=== PATIENT | male | born 1980 | race Caucasian/White ===

== ENCOUNTER 2017-02-10 21:28 | Emergency (ER) | payer BC ==
--- NOTE | 2017-02-10 22:13 | XR ---
EXAMINATION TYPE: XR foot complete RT DATE OF EXAM: 02/10/2017 CLINICAL HISTORY: Pain after tripping injury. TECHNIQUE: Frontal, lateral, and oblique images of the right foot are obtained. COMPARISON: None FINDINGS: There is no acute fracture/dislocation evident in the right foot. The joint spaces in the right foot appear within normal limits. The overlying soft tissue appears unremarkable. IMPRESSION: There is no acute fracture or dislocation in the right foot.
--- NOTE | 2017-02-10 22:14 | XR ---
EXAMINATION TYPE: XR ankle complete RT DATE OF EXAM: 02/10/2017 CLINICAL HISTORY: Ankle pain after tripping injury. TECHNIQUE: Frontal, lateral and oblique images of the right ankle are obtained. COMPARISON: None. FINDINGS: There is no acute fracture/dislocation evident in the right ankle. The ankle mortise appe ars within normal limits. The overlying soft tissue appears unremarkable. IMPRESSION: There is no acute fracture or dislocation in the right ankle.
--- NOTE | 2017-02-10 22:17 | ED ---
Lower Extremity Injury HPI - General Chief Complaint: Extremity Injury, Lower Stated Complaint: R foot injury Time Seen by Provider: 02/10/17 21:41 Source: patient Mode of arrival: ambulatory Limitations: no limitations - History of Present Illness Initial Comments: 36-year-old patient presented to emergency department today for evaluation of right foot pain. Patient states that approximately 2 hours ago he was coming down the steps, states his dog and his weight and he stumbled on the last couple of steps when he tried to avoid stepping on it. He states that since then he has been having some pressure and pain to the dorsal aspect of his foot. He states that he has full range of motion without any difficulty however when he wears a shoe or walks for any length of time his foot becomes painful. He denies any numbness or tingling to his foot. Denies any color change. Denies any previous injuries to the foot. Denies any other injuries from the fall. Denies hitting his head or losing consciousness. Patient denies any headache, neck pain, back pain, chest pain, shortness of breath, dizziness, weakness, abdominal pain, nausea, vomiting, or difficulties with bowel movements or urination. - Related Data Home Medications Medication Instructions Recorded Confirmed Losartan Potassium 100 mg PO DAILY 05/03/14 02/10/17 Allergies Allergy/AdvReac Type Severity Reaction Status Date / Time No Known Allergies Allergy Verified 02/10/17 21:35 Review of Systems ROS Statement: Those systems with pertinent positive or pertinent negative responses have been documented in the HPI. ROS Other: All systems not noted in ROS Statement are negative. Past Medical History Past Medical History: Hypertension History of Any Multi-Drug Resistant Organisms: None Reported Past Surgical History: Tonsillectomy Past Psychological History: No Psychological Hx Reported Smoking Status: Current every day smoker Past Alcohol Use History: Daily Past Drug Use History: None Reported General Exam Limitations: no limitations General appearance: alert, in no apparent distress Head exam: Present: atraumatic, normocephalic, normal inspection Eye exam: Present: normal appearance, PERRL, EOMI. Absent: scleral icterus, conjunctival injection, periorbital swelling Neck exam: Present: normal inspection, full ROM, other (Nontender, no step-off, no deformity to firm midline palpation of the posterior cervical spine. Full range of motion without pain or limitation.). Absent: tenderness, meningismus, lymphadenopathy Respiratory exam: Present: normal lung sounds bilaterally. Absent: respiratory distress, wheezes, rales, rhonchi, stridor Cardiovascular Exam: Present: regular rate, normal rhythm, normal heart sounds. Absent: systolic murmur, diastolic murmur, rubs, gallop, clicks Extremities exam: Present: normal inspection, full ROM, tenderness, normal capillary refill (Over the dorsal aspect of the foot), other (No swelling, no erythema, no ecchymosis noted. Skin is pink, warm, and dry. Cap refill less than 3 seconds. Full range of motion without pain or limitation.). Absent: joint swelling Back exam: Present: normal inspection. Absent: tenderness, vertebral tenderness Neurological exam: Present: alert, oriented X3, CN II-XII intact Psychiatric exam: Present: normal affect, normal mood Skin exam: Present: warm, dry, intact, normal color. Absent: rash Course Vital Signs 02/10/17 21:35 Temperature 98 F Pulse Rate 83 Respiratory 20 Rate Blood Pressure 125/73 O2 Sat by Pulse 98 Oximetry Medical Decision Making - Medical Decision Making 36-year-old male patient presented for evaluation of right foot pain after he landed wrong on it coming on the stairs earlier today. X-ray of the foot shows no acute fracture or dislocation. X-ray of the ankle shows no acute fracture or dislocation. Patient did has some tenderness over the dorsal aspect of the foot. Did discuss the possibility of an occult Lisfranc fracture. Did instruct him to have a repeat x-ray performed in 7-10 days should he have any problems or continued pain. He is instructed to rest, ice, and elevate the foot. Instructed to take Advil for pain control. He is instructed to return here immediately for any new, worsening, or concerning symptoms. Patient verbalizes understanding and agrees with this plan. - Radiology Data Radiology results: report reviewed, image reviewed Frontal, lateral, and oblique images of the right foot are obtained. There is no acute fracture or dislocation evident. The joint spaces in the right foot appear within normal limits. The overlying soft tissue appears unremarkable. Impression by Dr. Ewing shows no acute fracture or dislocation the right foot. Frontal, lateral, and oblique images of the right ankle are obtained. There is no acute fracture or dislocation evident in the right ankle. Ankle mortise appears within normal limits. The overlying soft tissue appears unremarkable. Impression by Dr. Gildardo quiñonez no acute fracture or dislocation of the right ankle. Disposition Clinical Impression: Right foot sprain Disposition: HOME SELF-CARE Condition: Good Instructions: Foot Sprain (ED) Additional Instructions: Rest, ice, elevate the right foot. Take ibuprofen for pain control. Follow up for repeat x-ray in 7-10 days if pain symptoms persist. Return here immediately for any new, worsening, or concerning symptoms. Referrals: Hesham Navarro MD [Primary Care Provider] - 1-2 days Time of Disposition: 22:17
[2017-02-10 22:27] VITALS: BP 122/67; PULSE 76; RESP 18; TEMP 97
== END 2017-02-10 22:27 | disposition home or self-care (01) ==
LOC: EC 21:28
DX: S93.601A Unspecified sprain of right foot, initial encounter (principal); I10 Essential (primary) hypertension; F17.200 Nicotine dependence, unspecified, uncomplicated; Z79.899 Other long term (current) drug therapy; W18.40XA Slipping, tripping and stumbling without falling, unspecified, initial encounter
CPT/HCPCS: 99283

== ENCOUNTER 2023-09-19 18:19 | Emergency (ER) | payer BC ==
--- NOTE | 2023-09-19 19:34 | ED ---
Fall HPI - General Chief Complaint: Fall Stated Complaint: Fall Time Seen by Provider: 09/19/23 19:05 Source: patient, RN notes reviewed Mode of arrival: wheelchair - History of Present Illness Initial Comments: 43-year-old male presenting with left hip pain status post fall 2 hours ago. States he was putting his boat in the water when he tripped and fell, landing on his left hip directly onto the concrete. Has been unable to weight-bear since the injury. Denies hitting head, loss of consciousness. Denies blood thinners. Denies numbness or tingling. He believes he hit his left shoulder as well but is not having very much pain in the shoulder anymore and is not as concerned about the shoulder as he is the hip. - Related Data Home Medications Medication Instructions Recorded Confirmed Losartan Potassium 100 mg PO DAILY 05/03/14 02/10/17 Allergies Allergy/AdvReac Type Severity Reaction Status Date / Time No Known Allergies Allergy Verified 09/19/23 19:01 Review of Systems ROS Statement: Those systems with pertinent positive or pertinent negative responses have been documented in the HPI. ROS Other: All systems not noted in ROS Statement are negative. Past Medical History Past Medical History: Hypertension History of Any Multi-Drug Resistant Organisms: None Reported Past Surgical History: Back Surgery, Tonsillectomy Past Psychological History: No Psychological Hx Reported Smoking Status: Current every day smoker Past Alcohol Use History: Daily Past Drug Use History: Marijuana General Exam Limitations: no limitations General appearance: alert, in no apparent distress Respiratory exam: Present: normal lung sounds bilaterally. Absent: respiratory distress, wheezes, rales, rhonchi, stridor Cardiovascular Exam: Present: regular rate, normal rhythm, normal heart sounds. Absent: systolic murmur, diastolic murmur, rubs, gallop, clicks Left Hip exam: Present: tenderness. Absent: normal inspection (6 cm linear purple/red contusion present on anterior aspect of left hip. Diffuse tenderness of anterior portion of left hip. Limited range of motion of hip. Full sensation and dorsalis pedis pulses of bilateral lower extremities. No saddle anesthesia), full ROM, swelling, abrasion, laceration, deformity Upper Leg exam: Present: normal inspection Knee exam: Present: normal inspection, full ROM. Absent: tenderness Lower Leg exam: Present: normal inspection, full ROM. Absent: tenderness, swell ing Course Vital Signs 09/19/23 19:01 Temperature 98 F Pulse Rate 92 Respiratory 12 Rate Blood Pressure 112/73 O2 Sat by Pulse 98 Oximetry Medical Decision Making - Medical Decision Making Was pt. sent in by a medical professional or institution (, PRERNA, MICROPHONE OPERATOR, urgent care, hospital, or fpc...) When possible be specific @ -No Did you speak to anyone other than the patient for history (EMS, parent, family, police, friend...)? What history was obtained from this source @ -No Did you review nursing and triage notes (agree or disagree)? Why? @ -I reviewed and agree with nursing and triage notes Were old charts reviewed (outside hosp., previous admission, EMS record, old EKG, old radiological studies, urgent care reports/EKG's, fpc records)? Report findings @ -No old charts were reviewed Differential Diagnosis (chest pain, altered mental status, abdominal pain women, abdominal pain men, vaginal bleeding, weakness, fever, dyspnea, syncope, headache, dizziness, GI bleed, back pain, seizure, CVA, palpatations, mental health, musculoskeletal)? @ -Differential Musculoskeletal Muscular strain, contusion, ligament sprain, fracture, arthritis, septic arthritis, bursitis, cellulitis, muscle spasm, nerve compression, DVT, arterial occlusion, herpes zoster, electrolyte abnormality, tumor.... This is not meant to be in all inclusive list EKG interpreted by me (3pts min.). @ -None X-rays interpreted by me (1pt min.). @ -X-ray of left hip reveals no acute fracture or dislocation CT interpreted by me (1pt min.). @ -None done U/S interpreted by me (1pt. min.). @ -None done What testing was considered but not performed or refused? (CT, X-rays, U/S, labs)? Why? @ -None What meds were considered but not given or refused? Why? @ -None Did you discuss the management of the patient with other professionals (professionals i.e. [facility]ER[facility] Marc, MICROPHONE OPERATOR, lab, RT, psych nurse, director social welfare, vacuum filter operator, teacher, crime prevention police officer, disability case manager)? Give summary @ -No Was smoking cessation discussed for >3mins.? @ -No Was critical care preformed (if so, how long)? @ -No Were there social determinants of health that impacted care today? How? (Homelessness, low income, unemployed, alcoholism, drug addiction, transportation, low edu. Level, literacy, decrease access to med. care, correction, rehab)? @ -No Was there de-escalation of care discussed even if they declined (Discuss DNR or withdrawal of care, Hospice)? DNR status @ -No What co-morbidities impacted this encounter? (DM, HTN, Smoking, COPD, CAD, Cancer, CVA, ARF, Chemo, Hep., AIDS, mental health diagnosis, sleep apnea, morbid obesity)? @ -None Was patient admitted / discharged? Hospital course, mention meds given and route, prescriptions, significant lab abnormalities, going to OR and other pertinent info. @ -Patient left AGAINST MEDICAL ADVICE. Patient was seen and evaluated for left hip injury s/p fall earlier today. Patient is neurovascularly intact. X-ray of left hip taken. Patient left AGAINST MEDICAL ADVICE before final read of x-ray return. Risks discussed in detail with patient and patient shows understanding. Strict return symptoms discussed. Supportive care and pain management discussed Undiagnosed new problem with uncertain prognosis? @ -No Drug Therapy requiring intensive monitoring for toxicity (Heparin, Nitro, Insulin, Cardizem)? @ -No Were any procedures done? @ -No Diagnosis/symptom? @ -Left hip strain Acute, or Chronic, or Acute on Chronic? @ -Acute Uncomplicated (without systemic symptoms) or Complicated (systemic symptoms)? @ -Uncomplicated Side effects of treatment? @ -No Exacerbation, Progression, or Severe Exacerbation? @ -No Poses a threat to life or bodily function? How? (Chest pain, USA, PA, pneumonia, PE, COPD, DKA, ARF, appy, cholecystitis, CVA, Diverticulitis, Homicidal, Suicidal, threat to staff... and all critical care pts) @ -No Disposition Clinical Impression: Injury of left hip Disposition: LEFT AGAINST MEDICAL ADVICE Condition: Stable Instructions (If sedation given, give patient instructions): Hip Sprain (ED) Additional Instructions: Please follow-up with PCP in 1-3 days. Please return to the Emergency Department if symptoms worsen or any other concerns. Is patient prescribed a controlled substance at d/c from ED?: No Referrals: Linwood Gomes DO [Primary Care Provider] - 1-2 days Time of Disposition: 22:11
[2023-09-19] MEDS: KETOROLAC 15 MG/ML 1 ML VIAL IM STA (20:00)
[2023-09-19] MEDS: ACET/COD 300 MG/30 MG STARTER PACK 6 TAB BTL PO STA (22:19)
[2023-09-19 22:56] VITALS: BP 112/78; PULSE 88; RESP 18; TEMP 97.7
--- NOTE | 2023-09-20 01:04 | XR ---
EXAMINATION TYPE: XR Hip Complete LT DATE OF EXAM: 09/19/2023 8:09 PM CLINICAL INDICATION:Male, 43 years old with history of left hip injury; [facility] COMPARISON: None. TECHNIQUE: Left hip was imaged in frontal and lateral projections. FINDINGS: Exam is limited due to exposure factors and some linear artifacts on the images. The abdome n shows no significant degenerative changes. No fracture or dislocation is seen involving the femoral acetabular joint or the proximal femur. Only a portion of the left pelvis is imaged. There is questi onable irregularity superior to the acetabular roof, and an acute pelvic injury cannot be excluded. Soft tissues show metallic zipper over the [id number], probable button over the thigh. No unexpect ed radiopaque foreign body. IMPRESSION: 1. Limited study shows no definite hip fracture or dislocation. 2. Cannot exclude fracture of the left pelvis superior to the acetabulum. 3. CT would be advised if there is continuing clinical concern.
== END 2023-09-19 22:22 | disposition left against medical advice (07) ==
LOC: EC 18:19
DX: S76.012A Strain of muscle, fascia and tendon of left hip, initial encounter (principal); F17.200 Nicotine dependence, unspecified, uncomplicated; Z53.29 Procedure and treatment not carried out because of patient's decision for other reasons; W01.0XXA Fall on same level from slipping, tripping and stumbling without subsequent striking against object, initial encounter; Y92.814 Boat as the place of occurrence of the external cause
CPT/HCPCS: 99284; 96372; 73502; J1885